=== PATIENT | male | born 1940 | race Caucasian/White ===

== ENCOUNTER → 2017-10-29 | Outpatient (CLI) | payer MEDICARE, OTHER | END | disposition home or self-care (01) | LOC: KCIC MRI 13:30 | DX: S83.241A Other tear of medial meniscus, current injury, right knee, initial encounter (principal); M17.11 Unilateral primary osteoarthritis, right knee; M22.41 Chondromalacia patellae, right knee; X58.XXXA Exposure to other specified factors, initial encounter; Y93.89 Activity, other specified; Y92.89 Other specified places as the place of occurrence of the external cause; Y99.8 Other external cause status | CPT/HCPCS: 73721 ==

== ENCOUNTER → 2018-03-27 | Outpatient (CLI) | payer MEDICARE, OTHER ==
[~2018-03-27] MED LIST: IOHEXOL 240 MG/ML 50ML VIAL. PO ONE; IOHEXOL 300 MG/ML 100ML VIAL. IV ONE
--- NOTE | 2018-03-27 12:49 | KCIC ---
EXAM: CT Chest and Abdomen with IV contrast CLINICAL HISTORY: Left sided chest pain. History of chronic lymphoid leukemia and colon cancer. COMPARISON: None. TECHNIQUE: Helical CT of the chest, abdomen and pelvis was performed following the administration of intravenous contrast. Oral contrast was administered. Axial, coronal and sagittal reformatted images were generated. ---PQRS compliance statement - One or more of the following individualized dose reduction techniques were utilized for this study: 1. Automated exposure control 2. Adjustment of the mA and/or kV according to patient size 3. Use of iterative reconstruction technique--- FINDINGS: Chest: The heart is not enlarged. No pericardial effusion. Coronary artery calcifications are seen. No pleural effusion or pneumothorax. No mediastinal or hilar lymphadenopathy by size criteria. No axillary lymphadenopathy. Small hiatal hernia. Minimal dependent opacities in the left lower lobe and medial right lower lobe likely scarring/atelectasis. A 5 mm nodular opacity is seen in the right lower lobe (series [id number], image 33). No lobar consolidation. Abdomen: No focal liver lesion. Gallbladder is normal. No biliary ductal dilatation. Spleen is unremarkable. Adrenal glands and pancreas are normal. Symmetric nephrograms. There are 2 nonobstructing left lower pole and one right lower pole renal calculi. Multiple bilateral hypodense renal lesions are too small to characterize, likely cysts. A 6.7 cm left lower pole cystic lesion is seen. No abdominal lymphadenopathy or ascites. Bones: Multilevel degenerative changes of the spine are seen. IMPRESSION: 1. 5 mm right lower lobe lung nodule is seen. Per Fleischner Society guidelines for incidentally found solid nodules measuring less than 6 mm, CT follow-up in about 12 months can be considered given history of malignancy. 2. No thoracic or upper abdominal lymphadenopathy. 3. Bilateral nonobstructing renal calculi. Electronically signed by: Bijan Pena MD (03/27/2018 12:45 PM) [facility]
== END | disposition home or self-care (01) ==
LOC: KCIC CT 09:09
PROVIDERS: ATTEND Family Medicine
DX: C91.10 Chronic lymphocytic leukemia of B-cell type not having achieved remission (principal); N20.0 Calculus of kidney; K44.9 Diaphragmatic hernia without obstruction or gangrene; I25.10 Atherosclerotic heart disease of native coronary artery without angina pectoris; R91.1 Solitary pulmonary nodule; Z85.038 Personal history of other malignant neoplasm of large intestine
CPT/HCPCS: 71260; 74160; 82565; Q9966; Q9967

== ENCOUNTER → 2018-09-30 | Outpatient (CLI) | payer MEDICARE, OTHER ==
--- NOTE | 2018-10-01 14:10 | KCIC ---
Examination: CT chest without contrast HISTORY: History of lung nodule follow-up COMPARISON: 03/26/2018 TECHNIQUE: Axial CT images of chest were performed without contrast. Coronal sagittal reformats are performed Exposure: One or more of the following individualized dose reduction techniques were utilized for this examination: 1. Automated exposure control 2. Adjustment of the mA and/or kV according to patient size 3. Use of iterative reconstruction technique FINDINGS: The central airways are patent. Mild coronary artery calcifications. Small hiatal hernia. No radiologically significant mediastinal lymphadenopathy is identified. The previously visualized 5 mm right lower lobe pulmonary nodule is similar to prior exam. Minimal scarring changes identified in the medial aspect of the right lower lobe of the lung grossly similar to prior exam. No evidence of pleural effusion or pneumothorax. The visualized liver, spleen, adrenals grossly appears unremarkable Partially visualized exophytic density measuring 9 mm in the right kidney is difficult to characterize similar to prior exam. IMPRESSION: 1. 5 mm pulmonary nodule identified in the right lower lobe lung similar to prior exam. 2. Coronary artery calcifications. Electronically signed by: Robert Ryan MD (10/01/2018 2:07 PM) [id number]
== END | disposition home or self-care (01) ==
LOC: KCIC CT 14:47
PROVIDERS: ATTEND Family Medicine
DX: I25.10 Atherosclerotic heart disease of native coronary artery without angina pectoris (principal); R91.1 Solitary pulmonary nodule; K44.9 Diaphragmatic hernia without obstruction or gangrene; J98.4 Other disorders of lung; I10 Essential (primary) hypertension; Z79.01 Long term (current) use of anticoagulants
CPT/HCPCS: 71250

== ENCOUNTER → 2019-03-18 | Outpatient (CLI) | payer MEDICARE, OTHER ==
--- NOTE | 2019-03-18 16:43 | KCIC ---
Bilateral renal ultrasound without comparison for abnormal CT, bilateral kidney cysts. Technique an findings: Real-time grayscale and color Doppler evaluation of the kidneys and urinary bladder is performed. The right kidney measures 11.8 x 5.5 x 4.8 cm and the left measures 12.8 x 5.4 x 5.9 cm. There is no hydronephrosis involving either kidney. The proximal aorta is obscured, however the mid and distal aorta are identified and are nonaneurysmal. The IVC is obscured. The urinary bladder is fluid distended and bilateral ureteral jets are identified. There is prostatic hypertrophy, with a prostate volume estimated at 152 cubic cm. On the right kidney, there is a very small 1.1 cm exophytic heterogeneously hypoechoic abnormality which does have some increased through transmission but also contains internal echoes. This likely represent complex cyst with proteinaceous or hemorrhagic debris. At the inferior pole the left kidney arising in exophytic fashion is a large simple cyst measuring 7.6 cm. There is normal color flow to both kidneys. IMPRESSION: 1. Small complex exophytic cyst arising from the right kidney, Bosniak category 2F. Recommend 6-12 month follow-up to establish stability. Electronically signed by: Live Apodaca MD (03/18/2019 4:41 PM) [id number]
== END | disposition home or self-care (01) ==
LOC: KCIC US 12:11
PROVIDERS: ATTEND Family Medicine
DX: N28.1 Cyst of kidney, acquired (principal); N32.89 Other specified disorders of bladder; N40.0 Benign prostatic hyperplasia without lower urinary tract symptoms
CPT/HCPCS: 76770

== ENCOUNTER → 2021-03-27 | Outpatient (CLI) | payer MEDICARE ==
--- NOTE | 2021-03-27 15:39 | KCIC ---
STUDY: MRI of the right shoulder without contrast INDICATION: Right shoulder and arm pain. Limited range of motion. COMPARISON: None. TECHNIQUE: Multiplanar MR imaging of the right shoulder performed without the use of intravenous or i ntra-articular contrast. FINDINGS: AC joint: Moderate/severe arthrosis with articular surface remodeling and fluid signal within the shanita nt space. Moderate subacromial subdeltoid bursitis. Rotator cuff: Hypertrophic and disorganized supraspinatus at the leading edge. Full-thickness perfora ting-type tear at/adjacent to the footprint as seen on images 8 and 9 series 6 and images 10 and 11 s eries 3. A few additional small areas of low grade interstitial tearing at the supraspinatus footprin t more posteriorly involving less than 25% tendon thickness. Infraspinatus tendinosis without a high- grade or full-thickness tear. Intact teres minor and subscapularis. Rotator cuff muscular bulk is wit hin normal limits. Labrum: Mild signal heterogeneity from superior to posterior/superior without a well delineated tear. Long head biceps tendon: Tendinosis and partial tearing of both the intra-articular and extra articul ar portions. Cartilage: No more than partial thickness chondrosis. Bones: Glenohumeral arthrosis is mild. Chronic changes at the greater tuberosity relating to insertio nal tendinopathy. Miscellaneous: Minimal joint fluid. Unremarkable axillary pouch. Subcoracoid bursitis communicating w ith the subacromial subdeltoid bursa. Impression: 1. Hypertrophic supraspinatus tendinosis mainly at the more anterior aspect. Near the leading edge, disorganized tendon fibers with a full-thickness perforating-type tear at this location (image 8 seri es 6). No high-grade or full-thickness tear elsewhere. Infraspinatus tendinosis but less so than the supraspinatus Muscular bulk is maintained. 2. Long head biceps tendinosis and partial-thickness tearing both of the intra-articular and extra a rticular portions. No well delineated labral tear. 3. Moderate subacromial subdeltoid bursitis which communicates with the subcoracoid bursa. 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 Electronically signed by: KENDRA WASHINGTON MD (03/27/2021 3:37 PM) [id number]
== END ==
LOC: KCIC MRI 12:21
PROVIDERS: ATTEND Family Medicine
DX: S46.111A Strain of muscle, fascia and tendon of long head of biceps, right arm, initial encounter (principal); M19.011 Primary osteoarthritis, right shoulder; M75.51 Bursitis of right shoulder; X58.XXXA Exposure to other specified factors, initial encounter; Y93.89 Activity, other specified; Y92.89 Other specified places as the place of occurrence of the external cause; Y99.8 Other external cause status
CPT/HCPCS: 73221